=== PATIENT | male | born 1970 | race African-American/Black ===

== ENCOUNTER 2016-07-05 12:07 | Emergency (ER) | payer MEDICARE, MEDICAID ==
[~2016-07-05] VITALS: Ht 175.3 cm; Wt 92.0 kg
[~2016-07-05 12:07] MED LIST: ALBUTEROL; MOTRIN
[2016-07-05 12:12] VITALS: BP 160/98
[2016-07-05 15:19] LABS: BG BASE EXCESS 0.1 mmol/L (-2.0-2.0); BG CARBOXYHEMOGLOBIN 0.7 % (0.5-1.5); BG DEOXYHEMOGLOBIN 4.1 % (0.0-5.0); BG FRACTION INSPIRED OXYGEN 21; BG HCO3 ACT 24.7 mmol/L (22.0-26.0); BG METHEMOGLOBIN 0.3 % (0.0-1.5); BG OXYGEN SATURATION 95.9 % (92.0-98.5); BG OXYHEMOGLOBIN 94.9 % (94.0-97.0); BG PCO2 40.3 mmHg (35.0-45.0); BG PH 7.406 (7.350-7.450); BG PO2 76.6 mmHg (75.0-100.0); BG SAMPLE SITE LEFT RADIAL; BG TOTAL HEMOGLOBIN 16.8 g/dL (12.0-18.0); BG VENT MODE ROOM AIR
== END 2016-07-05 15:58 | disposition home or self-care (01) ==
LOC: ER 12:21
DX: Z00.00 Encounter for general adult medical examination without abnormal findings (principal); I10 Essential (primary) hypertension; J45.909 Unspecified asthma, uncomplicated
CPT/HCPCS: 36600; 82375; 82805; 99283